=== PATIENT | female | born 1955 | race Caucasian/White ===

== ENCOUNTER 2019-06-10 15:38 | Emergency (ER) | payer OTHER ==
[~2019-06-10] VITALS: Ht 167.6 cm; Wt 72.6 kg
[~2019-06-10 15:38] MED LIST: CARI350; HYDACE5 PO; IBUP600; Norco 5-325 Ta1 EACH PO
[2019-06-10] MEDS ORDERED: Percocet 10-321 EACH PO (18:23)
== END 2019-06-10 18:30 | disposition home or self-care (01) ==
LOC: ER 15:38
DX: S42.201A Unspecified fracture of upper end of right humerus, initial encounter for closed fracture (principal); W18.30XA Fall on same level, unspecified, initial encounter; F17.200 Nicotine dependence, unspecified, uncomplicated
CPT/HCPCS: 29105; 73030; 73110; 96372-59; 99283-25; J3010

== ENCOUNTER 2021-05-02 06:39 | Emergency (ER) | payer MEDICARE, OTHER ==
[~2021-05-02] VITALS: Ht 162.6 cm; Wt 59.0 kg
[~2021-05-02 06:39] MED LIST changes: +Percocet 10-321 EACH PO
[2021-05-02 07:43] LABS: BASOPHILS ABSOLUTE AUTO 0.03 K/mm3 (0.00-0.23); BASOPHILS PERCENT AUTO 0 % (0-2); EOSINOPHILS PERCENT AUTO 1 % (0-6); Hematocrit 46.1 % (33.0-51.0); Hemoglobin 15.4 g/dL (11.5-16.0); IMMATURE GRAN ABSOLUTE AUTO 0.02 K/mm3 (0.00-0.10); IMMATURE GRAN PERCENT AUTO 0 % (0-1); LYMPHOCYTES ABSOLUTE AUTO 1.45 K/mm3 (0.84-5.20); LYMPHOCYTES PERCENT AUTO 20 % (21-46); MONOCYTES ABSOLUTE AUTO 0.78 K/mm3 (0.16-1.47); MONOCYTES PERCENT AUTO 11 % (4-13); Mean Corpuscular HGB Conc 33.4 g/dL (31.5-36.5); Mean Corpuscular Volume 93 fL (80-100); Mean Platelet Volume 10.5 fL (9.1-12.4); NEUTROPHILS ABSOLUTE AUTO 4.91 K/mm3 (1.96-9.15); NEUTROPHILS PERCENT AUTO 67 % (41-73); Platelet Count 243 K/mm3 (150-400); RDW Coefficient Variation 12.5 % (11.7-14.2); RDW Standard Deviation 42.7 fL (35.1-46.3); Red Blood Cell Count 4.96 M/mm3 (3.80-5.20); White Blood Cell Count 7.29 K/mm3 (4.00-11.30)
[2021-05-02 07:56] LABS: Alanine Aminotransfer (ALT/SGP 23 U/L (12-78); Albumin, Blood 3.6 g/dL (3.4-5.0); Albumin/Globulin Ratio 0.7 (0.8-1.8); Alk Phos 74 U/L (50-136); Anion Gap 4 mmol/L (6-16); Aspartate Aminotrans (AST/SGOT 25 U/L (12-37); Bilirubin, Total 0.7 mg/dL (0.1-1.0); Blood Urea Nitrogen 6 mg/dL (8-24); CO2, Blood 27 mmol/L (21-32); Calcium, Blood 9.8 mg/dL (8.5-10.1); Chloride, Blood 104 mmol/L (98-108); Globulin, Blood 4.9 g/dL (2.2-4.0); Glomerular Filtration Rate >60 (60-); Glucose, Blood 110 mg/dL (70-99); Potassium, Blood 3.8 mmol/L (3.5-5.5); Sodium, Blood 135 mmol/L (136-145); Total Protein, Blood 8.5 g/dL (6.4-8.2)
[2021-05-02] MEDS ORDERED: HYDACE10B PO (09:30)
== END 2021-05-02 10:00 | disposition home or self-care (01) ==
LOC: ER 06:39
PROVIDERS: Emergency Medicine
DX: R59.0 Localized enlarged lymph nodes (principal); M54.2 Cervicalgia; F17.200 Nicotine dependence, unspecified, uncomplicated
CPT/HCPCS: 70491; 71260; 73502; 80053; 85025; 96374; 96375; 99285-25; J2405; J3010; Q9967

== ENCOUNTER → 2021-05-04 | Outpatient (CLI) | payer MEDICARE, OTHER ==
[~2021-05-04] MED LIST changes: +HYDACE10B PO
[2021-05-04 14:59] LABS: Performing Lab SYMBIODX; Test Name FLOW CYTOMETRY
== END ==
LOC: LAB SHORT 13:05 → LAB 13:05
PROVIDERS: Otolaryngology
DX: R22.1 Localized swelling, mass and lump, neck (principal); C76.0 Malignant neoplasm of head, face and neck
CPT/HCPCS: 88305; 88341; 88342

== ENCOUNTER → 2021-05-11 | Outpatient (CLI) | payer MEDICARE, OTHER | END | disposition home or self-care (01) | LOC: LAB 13:55 → LAB SHORT 13:55 | PROVIDERS: Family Medicine | DX: G89.4 Chronic pain syndrome (principal) | CPT/HCPCS: G0480 ==